=== PATIENT | female | born 1925 | race Caucasian/White ===

== ENCOUNTER → 2017-03-01 | Outpatient (RCR) | payer MEDICARE, BC ==
[~2017-03-01] MED LIST: ANTIVERT 25MG25 MG PO; ASPIRIN 32325 MG/TAB PO; ASPIRIN E.C. 8181 MG PO; CARDIZEM CD240 MG PO; CARDIZEM120 MG PO; CARTIA XT180 MG PO; CELEBREX 200MG200 MG PO; CORDARONE200 MG PO; COUMADIN 22.5 MG/TAB PO; COUMADIN 2MG2 MG/TAB PO; COUMADIN 5MG5 MG/TAB PO; COUMADIN2.5 MG PO; DULCOLAX S10 MG/SUPP RC; FERROUS SU325 MG/TAB PO; IRON TABLETS325 MG PO; IRON325 M1 PO; LASIX20 MG PO; LEVOXYL0.05 MG PO; LEXAPRO 10MG10 MG PO; LEXAPRO10 MG PO; MAG-OX 400400 MG PO; MAG-OX 400400 MG/TAB PO; MICRO-K 1010 MEQ PO; MILK OF MA400 MG/52 PO; MUCINEX 60600 MG/TA1 PO; MULTI VITAMINS1 TAB PO; MULTIPLE VITAMI1 TAB PO; NORCO 325 MG-51 TAB PO; NORCO 325 MG-7.1 TAB PO; NORVASC 5MG5 MG/TAB PO; OSCAL 500 TAB500 MG PO; PACERONE100 MG PO; SENOKOT S 50 MG1 TAB PO; SUDAFED30 MG PO; THERAGRAN TAB1 UDTAB PO; TOPROL XL 25MG25 MG PO; TOPROL XL 50MG50 MG PO; TYLENOL 325MG325 MG PO; ULTRAM 50MG TAB50 MG PO; VITAMIN C500 MG PO
== END | disposition home or self-care (01) ==
LOC: COL.CR
DX: Z48.812 Encounter for surgical aftercare following surgery on the circulatory system (principal); I34.0 Nonrheumatic mitral (valve) insufficiency

== ENCOUNTER 2017-03-06 16:22 | Outpatient (RCR) | payer MEDICARE, BC | END 2017-03-10 08:06 | disposition home or self-care (01) | LOC: COL.CR 16:22 | DX: Z48.812 Encounter for surgical aftercare following surgery on the circulatory system (principal); Z95.2 Presence of prosthetic heart valve ==